=== PATIENT | female | born 1965 | race Caucasian/White ===

== ENCOUNTER → 2024-08-27 08:51 | Outpatient (BNVA) | payer OTHER, SELFPAY | PROVIDERS: Visit Provider Podiatrist Foot & Ankle Surgery | DX: M79.672 Pain in left foot (principal); Q66.222 Congenital metatarsus adductus, left foot; Z98.890 Other specified postprocedural states | CPT/HCPCS: 73620; 73630 ==

== ENCOUNTER 2024-09-19 05:54 | Day surgery (SDC) | payer OTHER, SELFPAY ==
[2024-09-19] VITALS (8 sets, daily range): BP systolic 106–159; BP diastolic 52–91; PULSE 64–75; RESP 18; TEMP 36.2–36.6; O2SAT 95–100; BMI 16.7
--- NOTE | 2024-09-19 | XR_ITS ---
WS: [id number] C-ARM RADIOGRAPHS LEFT FOOT; 1 IMAGES HISTORY: DELORES ALEXANDRE COMPARISON: 08/27/2024 Intraoperative imaging during procedure in the LEFT foot. Only a lateral image submitted which contai ns 2 screws to the metatarsal region. XR/XR foot LT min 3V* [id number] IMPRESSION: Intraoperative imaging during LEFT foot procedure.
--- NOTE | 2024-09-19 06:49 | ANES.PREANE2 ---
Pre-Anesthetic Assessment Height/Weight: Height 2.47 m Weight 102.058 kg O2 Del Method Room Air 09/19/24 06:20 Preop Diagnosis: Left bunion Operation Date: 09/19/24 07:30 Proposed Procedures p Left modified Hari bunionectomy versus First metatarsal phalangeal joint fusion(Left) - Brenden Jeff DPM Familial anesthetic complications: None Was Beta Tomy taken within 24 hours: N/A Was Clonidine taken within 24 hours: N/A Last intake: Intake Last Liquid Date 09/18/24 Last Liquid Time 21:30 Last Solid Date 09/18/24 Last Solid Time 18:30 Social No alcohol and No tobacco Exam alert, oriented x 3, clear to auscultation bilaterally and regular rate & rhythm Airway Mallampati: Class II Dentition: full Anesthetic Plan ASA status: 1 Anesthesia: MAC Risk of > 500 ml blood loss (7ml/kg in children): No Medications/Allergies Home Medications Medication Instructions Recorded Confirmed Last Taken Type cetirizine 10 mg tablet (Zyrtec) 10 mg PO DAILY PRN Allergy Symptoms 09/19/24 09/19/24 2 Weeks Ago History ~09/05/24 Allergies Allergy/AdvReac Type Severity Reaction Status Date / Time acetaminophen [From Tylenol] Allergy Intermediate ADR-Nausea Verified 09/18/24 09:03 Bleach (Sodium Hypochlorite) Allergy Intermediate ALGY-Hives Verified 09/18/24 09:03 [facility] Anesthesia Social History Smoking and tobacco/nicotine status: former use of tobacco/nicotine Second hand smoke exposure: No Alcohol intake: never Substance/Drug Use: never Lives independently: Yes Household members: spouse Housing: House Marital status: Current occupational status: employed Do you think of yourself as: Straight/Heterosexual Current gender identity: Female Data Anesthesia Cardiac Studies: No Data to Display
[2024-09-19] MEDS: gabapentin 300 mg Capsule PO (06:56)
[2024-09-19] MEDS: CELEcoxib 200 mg Capsule 400 MG PO (06:56)
[2024-09-19] MEDS: sodium chloride 0.9% 1,000 ML 30 ML IV (06:59)
[2024-09-19] MEDS: ceFAZolin 2,000 mg SDV 2000 MG IVP (07:35)
--- NOTE | 2024-09-19 07:43 | W.PM.OPSUD ---
Surgery/Procedure H&P Update DATE OF PROCEDURE: September 19, 2024 DATE H&P PERFORMED: 08/27/24 H&P UPDATE INFORMATION: I have reviewed H&P completed within last 30 days, I have examined patient prior to procedure, No changes to prior documentation and H&P is in [facility] [place] on date indicated PREOP DIAGNOSIS: Left bunion PLANNED PROCEDURE: Operation Date: 09/19/24 07:30 Proposed Procedures p Left modified Hari bunionectomy versus First metatarsal phalangeal joint fusion(Left) - Brenden Jeff DPM
[2024-09-19] MEDS: BUPivacaine 0.5% INJ 30 mL INJECTION (07:49)
[2024-09-19] MEDS: BUPivacaine liposome 13.3 mg/mL SDV 20 mL 266 MG INFILTRATI (07:50)
--- NOTE | 2024-09-19 08:58 | W.PM.BPON ---
Date of Procedure: 01/11/24 Surgeon: Brenden Jeff DPM Stock Preparation Operator(s): Nai Nichols Procedure(s) performed: Modified Hari bunionectomy, left foot Findings of the procedure(s): None Estimated blood loss: 2 mL Specimen(s) removed: No specimens Post-operative diagnosis: Left bunion
--- NOTE | 2024-09-19 08:58 | PM.OP ---
Operative Report Date of procedure: September 19, 2024 Pre-op diagnosis: Foot pain, left M79.672 Bunion, left M21.612 Post-op diagnosis: Foot pain, left M79.672 Bunion, left M21.612 Procedure done: Modified Hari bunionectomy, left foot. CPT code 33566 Implants: 3 mm headed Kenova screw x 2, 2-0 Vicryl, 4-0 Vicryl, 4-0 nylon Specimens removed/disposition: None Pathology: None Surgeon: Brenden Jeff DPM Anatomic Pathology Manager: Nai Garcia Estimated blood loss: 2 See intraoperative documentation IV fluids: See intraoperative documentation Brief History: 59-year-old female with a history of hallux valgus repair on the right foot, presenting with pain and deformity due to hallux valgus on the left foot. The patient also presents with metatarsus adductus, complicating the predictable outcomes of bunion surgery. The deformity's impact on daily activities and the need for surgical intervention are primary concerns. She is wishing to proceed with surgical intervention as she has failed conservative treatment outlined in HPI. 1. Metatarsus Adductus Consider metatarsus adductus when planning surgical correction for hallux valgus. Diagnostic imaging is intended to understand bone orientation and to decide on surgical techniques that address current malformation while considering long-term outcomes. 2. Hallux valgus (acquired), left foot M20.12 The patient presents with a complex bunion due to underlying metatarsus adductus, increasing surgical uncertainty. A comparative imaging study of both feet is planned to assess the feasibility of performing a similar surgical correction as on the right foot. If the alignment is significantly different, a joint fusion may be recommended. The approach favored minimizes postoperative pain by avoiding tight bandaging, accepting minor bleeding as preferable. The patient's history of successful correction on the right side offers a reference for potential success, pending diagnostic confirmation of compatibility. I reviewed at length with the patient, the risks, potential complications, benefits, alternatives, expectations, and typical outcomes associated with the surgery. The risks and potential complications were explained in detail, including but not limited to infection, wound dehiscence or soft tissue complications, bleeding and hematoma, chronic edema, neuritis or nerve damage producing numbness or chronic pain, CRPS, failure to relieve pain or worsening pain, thick / painful / unsightly scar, limited motion / stiffness, malposition, delayed union, malunion, or nonunion, fracture, reaction to implants, anesthetic complications, venous thromboembolism, and deformity recurrence. I discussed the notion of no regrets with the patient as it pertains to complications and outcomes. The patient seemed to understand the nature of the proposed care and required convalescence. They asked appropriate questions, answered to their satisfaction. They are aware no guarantees can be made as to a satisfactory outcome and they understand there may be other possible unforeseen complications or outcomes not listed here that will be treated accordingly if they arise. There were no written or implied guarantees given to the patient. They gave informed consent to proceed. Discussed Hari Alpesh versus first MPJ fusion, pros and cons of each, would like to leave it to intraoperative decision making once visualizing the deformity, stability of the joint and quality of cartilage of the first metatarsal phalangeal joint. Procedure: Under mild sedation the patient was brought to the operating room and remained on the gurney in supine position. A timeout was performed. Anesthesia was then administered by the anesthesia service. Local anesthesia was injected by myself consisting of 20 cc of 0.5% Marcaine plain in a left Mon block fashion with an additional 20 cc of Exparel subcutaneously in a grid like fashion proximal to the planned operative site left medial forefoot. A well-padded pneumatic tourniquet was applied to the left ankle. The left lower extremity was scrubbed, prepped and draped utilizing normal aseptic technique. Left foot was exanguinated with an Esmarch bandage and tourniquet inflated to 250 mmHg. Attention was directed to the left bunion deformity where a linear longitudinal incision was made medial and parallel to the extensor hallucis longus tendon the left first metatarsal plantar joint through skin with #15 blade with dissection carried down through subcutaneous tissue to the layer periosteum utilizing a combination of sharp and blunt technique. Care was taken to retract and preserve neurovascular and tendinous structures. All bleeders were ligated and cauterized as necessary. A linear capsulotomy was performed at the medial aspect of the left first metatarsal plantar joint the head of the first metatarsal and base of the proximal phalanx were freed from the soft tissue and capsular attachments. Medial eminence of the first metatarsal head was transected with a sagittal saw and all rough edges smoothed, direct visualization of the first metatarsophalangeal joint did not reveal significant arthrosis and cartilage was viable and healthy with smooth range of motion appreciated approximately 60 degrees of dorsiflexion intraoperatively at this time. At this point proceeding with a joint salvaging osteotomy consistent with modified Hari bunionectomy was considered best for the patient to maintain mobility and improve alignment of the first metatarsal phalangeal joint. A chevron osteotomy was performed from medial to lateral at the head of the left first metatarsal with apex oriented distally and the head of the first metatarsal was translated laterally and fixated utilizing 2 screw fixation oriented dorsal distal to proximal plantar with excellent bony apposition and compression noted, remaining medial shelf of the first metatarsal was transected and all rough edges smoothed with a power bur. Lateral release was performed sharply with a #15 blade. AP, oblique and lateral views confirmed reduction of the first intermetatarsal angle and a rectus hallux not requiring any Alpesh osteotomy. The first metatarsal phalangeal joint had smooth range of motion still at 60 degrees of dorsiflexion appreciated intraoperatively. The incision was irrigated with copious amounts of sterile skin solution and the medial capsule was closed with 2-0 Vicryl, subcutaneous tissue closed with 4-0 Vicryl and skin with 4-0 nylon. The incision was then dressed with Adaptic, sterile 4 x 4's, Kerlix and Jl wrap followed by application of a cam boot to the left lower extremity. The tourniquet was then deflated and a prompt hyperemic response is noted to the distal digits of the left foot. Patient tolerated the procedure and anesthesia well and was transferred to the PACU with vital signs stable and vascular status intact. Following a period of postoperative monitoring she will be discharged home without home care instructions and scheduled follow-up.
--- NOTE | 2024-09-19 10:00 | ANE.PACU2 ---
Inpatient post-anesthesia follow up: Airway intact: Yes Vital signs: Temperature 97.3 F Pulse Rate 72 Respiratory Rate 18 Blood Pressure 149/76 Pulse Oximetry 100 Oxygen Delivery Me thod Room Air Oxygen Flow Rate Fraction of Inspir ed Oxygen Hydration adequate: Yes Nausea and vomiting: No Pain level: 1 Mental status: Baseline
== END 2024-09-19 10:00 | disposition home or self-care (01) ==
PROVIDERS: Visit Provider Podiatrist Foot & Ankle Surgery
PROC: (CPT 28296; principal; 2024-09-19 07:30)
DX: M21.612 Bunion of left foot (principal); Z87.891 Personal history of nicotine dependence
CPT/HCPCS: 28296; 73630; 76000; C1713; C9290; J0690; J2704; J3010; J3490; J7030

== ENCOUNTER → 2024-10-02 14:46 | Outpatient (BNVA) | payer OTHER, SELFPAY | PROVIDERS: PCP Family Medicine; Visit Provider Podiatrist Foot & Ankle Surgery | DX: Z98.890 Other specified postprocedural states (principal) | CPT/HCPCS: 73630 ==

== ENCOUNTER → 2024-10-30 15:03 | Outpatient (BNVA) | payer OTHER, SELFPAY | PROVIDERS: PCP Family Medicine; Visit Provider Podiatrist Foot & Ankle Surgery | DX: Z98.890 Other specified postprocedural states (principal) | CPT/HCPCS: 73630 ==

== ENCOUNTER → 2024-11-27 13:34 | Outpatient (BNVA) | payer OTHER, SELFPAY | PROVIDERS: PCP Family Medicine; Visit Provider Podiatrist Foot & Ankle Surgery | DX: Z98.890 Other specified postprocedural states (principal) | CPT/HCPCS: 73630 ==